=== PATIENT | male | born 1995 | race African-American/Black ===

== ENCOUNTER 2017-09-19 12:50 | Emergency (ER) | payer SELFPAY ==
[~2017-09-19] VITALS: Ht 188 cm; Wt 80.0 kg
[2017-09-19 12:56] VITALS: BP 168/92; PULSE 94; RESP 23; TEMP 98.9; O2SAT 100
[2017-09-19] MEDS ORDERED: MORPHINE SULFATE 4 MG/ML INJ IV PUSH ONE (13:00)
[2017-09-19] MEDS ORDERED: ONDANSETRON HCL 4 MG/2 ML VIAL IV PUSH ONE (13:00)
--- NOTE | 2017-09-19 13:09 | PD ---
HPI . Shoulder injury Chief Complaint: Injury Time Seen by Provider: 12:56 Travel History International Travel<30 days: No Contact w/Intl Traveler<30days: No Traveled to known affect area: No History of Present Illness HPI Patient presents by EVAC with the chief complaint of a left shoulder injury. 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 He was attempting to block a shot when the other player jumped up vertically. This put a stress on his left shoulder causing an injury. A bystander states that his arm was hanging limply by his side immediately following the incident. Pain is rated 10 /10 and is exacerbated by movement. PFSH Past Medical History Asthma: Yes ( A CHILD) Past Surgical History Surgical History: No Previous Surgery Social History Alcohol Use: No Tobacco Use: No Substance Use: No Allergies-Medications (Allergen,Severity, Reaction): Coded Allergies: No Known Allergies (Unverified , 09/19/17) Reported Meds & Prescriptions Reported Meds & Active Scripts Active [place] (Hydrocodone-Acetaminophen) 5 Mg-325 Mg Tab 1 Tab PO Q4H PRN Review of Systems Except as stated in HPI: all other systems reviewed are Neg Musculoskeletal: Positive: Arthralgias Neurologic: No: Paresthesia Physical Exam Narrative GENERAL: Awake and alert. SKIN: Warm and dry. Intact. HEAD: Normocephalic/atraumatic. EYES: Pupils are equal. Extraocular movements are intact. NECK: Normal range of motion. CARDIOVASCULAR: Regular rate and rhythm. RESPIRATORY: Nonlabored respirations. MUSCULOSKELETAL: The patient is holding his left shoulder up away from his body. There is a deformity distal to the glenohumeral joint. He has normal sensation over the deltoid. He has normal distal pulses. He has normal movement of his forearm, hand and fingers NEUROLOGICAL: Nonfocal. PSYCHIATRIC: Appropriate mood and affect. Data Data Last Documented VS Vital Signs Date Time Temp Pulse Resp B/P (MAP) Pulse Ox O2 Delivery O2 Flow Rate FiO2 09/19/17 14:01 100 09/19/17 12:56 98.9 94 23 168/92 (117) Room Air Orders Orders ^ Saline Lock (09/19/17 12:56) Morphine Inj (Morphine Inj) (09/19/17 13:00) Ondansetron Inj (Zofran Inj) (09/19/17 13:00) Consent (09/19/17 12:56) Shoulder, Limited(2vws) (09/19/17 12:56) Etomidate Inj (Amidate Inj) (09/19/17 13:45) Shoulder, Limited(2vws) (09/19/17 13:53) Ed Discharge Order (09/19/17 14:21) [facility] Medical Decision Making Medical Screen Exam Complete: Yes Emergency Medical Condition: Yes Differential Diagnosis Differential diagnosis of extremity trauma includes but is not limited to fracture, sprain or strain, dislocation, contusion Narrative Course This patient presents with a left shoulder injury. He is holding it oddly for a dislocation. Therefore, an x-ray will be obtained prior to attempted reduction. He has been given morphine and Zofran pending x-rays. Follow-up x-ray shows adequate reduction. Procedures Procedure Narrative After the risks and benefits were discussed the following procedure was performed: MODERATE SEDATION: The patient was placed on a panel monitor and pulse oximetry. An ambu bag and suction was immediately available at bedside. The patient was monitored by the nurse. Oxygen saturation , heart rate and blood pressure were monitored. Procedural sedation was acheived using etomidate. The patient was observed until awake and alert. Procedural Sedation time in attendance was 10 minutes. Diagnosis Primary Impression: Dislocation of left shoulder joint Qualified Codes: S43.005A - Unspecified dislocation of left shoulder joint, initial encounter Patient Instructions: General Instructions, Shoulder Dislocation (DC) Med/Other Pt SpecificInfo: Prescription(s) given Scripts Hydrocodone-Acetaminophen ([place]) 5 Mg-325 Mg Tab 1 TAB PO Q4H Y for PAIN, #12 TAB 0 Refills Prov: Tressa Talbert MD 09/19/17 Disposition: 01 DISCHARGE HOME Condition: Stable Tressa Talbert MD Sep 19, 2017 13:09
--- NOTE | 2017-09-19 13:41 | RADRPT ---
EXAM DATE/TIME: 09/19/2017 13:18 [facility] COMPARISON: No previous studies available for comparison. INDICATIONS : Left shoulder pain. MEDICAL HISTORY : None. SURGICAL HISTORY : None. ENCOUNTER: Initial ACUITY: 1 day PAIN SCORE: 10/10 LOCATION: Left upper extremity FINDINGS: There is anterior-inferior dislocation of the humeral head. No fracture seen. The a.c. joint is in normal alignment the visualized left upper ribs are intact. CONCLUSION: Anterior dislocation of the shoulder. zA Guzman MD on September 19, 2017 at 13:38 Board Certified Radiologist. This report was verified electronically.
[2017-09-19] MEDS ORDERED: ETOMIDATE 20 MG/10 ML VIAL IV PUSH ONE (13:45)
[2017-09-19] MEDS ORDERED: NORC5TAB PO (13:56)
[2017-09-19 14:01] VITALS: O2SAT 100
--- NOTE | 2017-09-19 14:23 | RADRPT ---
EXAM DATE/TIME: 09/19/2017 14:03 [facility] COMPARISON: SHOULDER LEFT LTD (2VWS), September 19, 2017, 13:18. INDICATIONS : Post reduction left shoulder. MEDICAL HISTORY : Left shoulder dislocation. SURGICAL HISTORY : None. ENCOUNTER: Subsequent ACUITY: 1 day PAIN SCORE: 3/10 LOCATION: Left Shoulder. FINDINGS: Two-view examination of the left shoulder status post reduction demonstrates normal alignment of the humeral head and glenoid. No fractures seen. CONCLUSION: Status post reduction left shoulder dislocation. Az Guzman MD on September 19, 2017 at 14:21 Board Certified Radiologist. This report was verified electronically.
--- NOTE | 2017-09-19 14:28 | PD ---
Physical Exam Date Seen by Provider: Sep 19, 2017 Time Seen by Provider: 14:23 Narrative I performed reduction of left shoulder dislocation with my attending physician, Dr. Talbert. Data Data Last Documented VS Vital Signs Date Time Temp Pulse Resp B/P (MAP) Pulse Ox O2 Delivery O2 Flow Rate FiO2 09/19/17 14:01 100 09/19/17 12:56 98.9 94 23 168/92 (117) Room Air Orders Orders ^ Saline Lock (09/19/17 12:56) Morphine Inj (Morphine Inj) (09/19/17 13:00) Ondansetron Inj (Zofran Inj) (09/19/17 13:00) Consent (09/19/17 12:56) Shoulder, Limited(2vws) (09/19/17 12:56) Etomidate Inj (Amidate Inj) (09/19/17 13:45) Shoulder, Limited(2vws) (09/19/17 13:53) Ed Discharge Order (09/19/17 14:21) MDM Medical Record Reviewed: Yes Supervised Visit with INGRID: No Procedures Procedure Narrative Procedural sedation was performed by my attending physician, Dr. Talbert. Once patient was properly sedated and monitored, the head of the bed was lowered. The left shoulder was successfully reduced using the external rotation maneuver without difficulty. Sling was applied and post reduction x-ray was ordered. Diagnosis Primary Impression: Dislocation of left shoulder joint Qualified Codes: S43.005A - Unspecified dislocation of left shoulder joint, initial encounter Patient Instructions: General Instructions, Shoulder Dislocation (DC) Scripts Hydrocodone-Acetaminophen ([place]) 5 Mg-325 Mg Tab 1 TAB PO Q4H Y for PAIN, #12 TAB 0 Refills Prov: Tressa Talbert MD 09/19/17 Disposition: 01 DISCHARGE HOME Condition: Stable Susana Powell BECKY Sep 19, 2017 14:28
[2017-09-19 14:45] VITALS: BP 139/87
== END 2017-09-19 14:46 | disposition home or self-care (01) ==
LOC: NEPE 12:50
DX: S43.005A Unspecified dislocation of left shoulder joint, initial encounter (principal); W51.XXXA Accidental striking against or bumped into by another person, initial encounter; Y93.67 Activity, basketball; Y92.214 College as the place of occurrence of the external cause
CPT/HCPCS: 23650; 73030; 96374; 96375; 99285; J2270; J2405